=== PATIENT | female | born 1950 | race Two or more races ===

== ENCOUNTER → 2017-01-11 | Outpatient (CLI) | payer MEDICARE, MEDICAID ==
--- NOTE | 2017-01-11 16:46 | RADRPT ---
PROCEDURE: XR Knees. CLINICAL INDICATION: Bilateral knee pain. TECHNIQUE: Total of six views. Frontal, oblique, and lateral views of both knees. COMPARISON: No prior study is available for comparison. FINDINGS: There is no fracture or dislocation. The soft tissues are normal. There are mild degenerative changes with small osteophytes arising from all 3 joint compartment eitan ins bilaterally. There is no joint space narrowing or deformity. There is no lytic or blastic lesion. There is no radiopaque foreign body. IMPRESSION: 1. Mild degenerative changes of both knees. RPTAT: QQ .Dario Montemayor MD, MD Date Time Electronically viewed and signed by .Dario Montemayor MD, MD on 01/11/2017 16:45 .R/
--- NOTE | 2017-01-11 20:49 | HKNOTE ---
DATE OF SERVICE: 01/11/2017 MAIN COMPLAINT: Pain in both knees, worse on the left side. HISTORY OF MAIN COMPLAINT: The patient is a 66-year-old female who has rheumatoid arthritis. She is treated for her rheumatoid arthritis by her general practitioner. She takes [id number] anti- inflammatory medications and Motrin or Voltaren gel. Her main complaint today is pain in both knees, worse on the left side. About 1 month ago the patien lorena was on her way home from a alliance party where she did quite a bit of dancing. Both knees became very swol krystle on the way back home, she could barely get out of the car. She got herself into bed with the he lp of . The next morning she could barely walk. She had to stay at home for more than a wee k. At first both knees were affected equally and were swollen to the same degree. Patient took Mot rin and Voltaren gel and gradually the knees became better, but as of late the left knee is worse th an the right knee. The patient had a torn meniscus in 1 of her knees at the age of 54. She was abdulaziz ated with physical therapy and "the knee healed up slowly." PRESENT COMPLAINTS: The pain in her knee is now much less than it was. She has almost no pain in th e right knee, she still has some pain in the left knee. Pain is aggravated by walking, weightbearin g and stair climbing. Going downstairs is almost impossible even now. She gets rest pain and night pain. She has a history of problems with her lower back. She has been treated with physical thera py. She has never had an MRI scan of her spine. On a level surface, she can walk for 5 minutes or so without stopping and then it becomes "too painful." Some days she has very little pain and other days she has pain with every step that she takes. Neither of knees locks or feels unstable. When the pain was bad she was limping all the time. Dr. Raul Fonseca, a [place] orthopedic surgeon, gave her 5 "shots" a year into her knees. She does not believe that it was cortisone. PAST ORTHOPEDIC HISTORY: No previous orthopedic operations. PRIOR CORTISONE INTAKE: None. ALCOHOL INTAKE: None. OTHER JOINT PROBLEMS: Multiple but not recent. BLOOD TESTS FOR ARTHRITIS: Yes, positive for rheumatoid arthritis. PRIOR INJURIES TO HIPS OR KNEES: None. WORK STATUS: Patient is retired. PAST MEDICAL HISTORY: 1. Diabetes. 2. Rheumatoid arthritis. PAST SURGICAL HISTORY: Gallbladder removed in [place] in 1979. ALLERGIES: CODEINE. MEDICATIONS: 1. Hyzaar 10/12.5 one a day for hypertension 2. Dexilant 60 mg once a day to protect her stomach. 3. Atenolol 50 mg once a day for hypertension. 4. Janumet once a day for diabetes. 5. Crestor 10 mg once a day for cholesterol. FAMILY HISTORY: Both parents are and had diabetes. Father also had heart problems. SYSTEMS REVIEW: Varicose veins. Numbness in her hands and fingers. Gait disturbance. Hypertensio n, diabetes, otherwise negative. HABITS: Patient nonsmoker, drinks alcoholic beverages. INSPECTOR EXPERIMENTAL ASSEMBLY: Dr. Lizzy Tuttle PHYSICAL EXAMINATION: GENERAL: The patient is a fit-looking and youthful 66-year-old female. VITAL SIGNS: Height 5 feet 4 inches, weight 170 pounds, blood pressure 138/65, temperature 97.6. GAIT: The patient's gait is normal. She walks without a walking aid. HIPS: Both hips have full range of motion without pain. RIGHT KNEE: The right knee shows normal alignment. Active and passive extension is 0 degrees. Activ e and passive flexion is 135 degrees. The medial and lateral collateral ligaments and cruciate ligam ents are intact. Consuelo test is negative. There is 1+ effusion. There is no tenderness, scarring, crepitus, or cysts. The patella tracks normally. There is no tenderness on the articular surface of the patella or in the patellar groove. The Q angle is normal. LEFT KNEE: The left knee shows normal alignment. Active and passive extension is 0 degrees. Active and passive flexion is 135 degrees. The medial and lateral collateral ligaments and cruciate ligamen ts are intact. Consuelo test is negative. There is 1+ effusion. There is no tenderness, scarring, cre pitus, or cysts. The patella tracks normally. There is no tenderness on the articular surface of the patella or in the patellar groove. The Q angle is normal. IMAGING: Plain x-rays of her knees obtained today at the [facility] were reviewe d. These show moderate narrowing of the medial compartments of both knees. Otherwise, entirely normal. DIAGNOSES: 1. Rheumatoid arthritis. 2. Recent flare up of rheumatoid in both knees. 3. Diabetes. 4. Hypertension. MANAGEMENT: The patient is advised that since her condition seems to be quiescent at present, there is no need to give her any medications. She is being referred to Dr. James Lindsay for rheumatoid a rthritis management. Dr. Lindsay was called and advised that this patient would be coming to see him . She will have a CBC, sed rate, C-reactive protein, and rheumatoid factor before she gets to his of pending sale to [facility]. Dictated By: GRICELDA CONDE/YASH Conf#: [id number] DID#: [id number]
== END | disposition home or self-care (01) ==
LOC: HKI 15:37
DX: M06.862 Other specified rheumatoid arthritis, left knee (principal); M06.861 Other specified rheumatoid arthritis, right knee; E11.9 Type 2 diabetes mellitus without complications; I10 Essential (primary) hypertension
CPT/HCPCS: 73562; G0463